=== PATIENT | female | born 1975 | race Hispanic/Latino ===

== ENCOUNTER 2017-01-20 01:09 | Inpatient (IN) | payer MEDICAID ==
[2017-01-20 01:25] VITALS: O2SAT 99; BMI 29.5
--- NOTE | 2017-01-20 01:52 | ED PDOC ---
Arrival/HPI - General Chief Complaint: Medical Clearance Time Seen by Provider: 01/20/17 01:42 Historian: Patient - History of Present Illness Narrative History of Present Illness (Text): 01/20/17 01:44 41yr old female presents as a direct admit to psych floor for depression. pt transferred from [place] for depression and attempted suicide. pt c/o depression. states she recently lost her step mom. pt with hx of depression and prior suicide attempts. no cp or sob. no abdominal pain. denies any complaints. Past Medical History - Provider Review Nursing Documentation Reviewed: Yes - Travel History Have you recently traveled outside [place] w/in the past 3 mons?: No - Cardiac Hx Cardiac Disorders: No - Pulmonary Hx Respiratory Disorders: No - Neurological Hx Neurological Disorder: No - HEENT Hx HEENT Disorder: No - Renal Hx Renal Disorder: No - Endocrine/Metabolic Hx Endocrine Disorders: No - Hematological/Oncological Hx Blood Disorders: Yes Other/Comment: Lupus. murphy. sjogren's syndrome - Integumentary Hx Dermatological Disorder: No - Musculoskeletal/Rheumatological Hx Musculoskeletal Disorders: No - Gastrointestinal Hx Gastrointestinal Disorders: No - Genitourinary/Gynecological Hx Genitourinary Disorders: No - Psychiatric Hx Psychophysiologic Disorder: Yes Hx Anxiety: Yes Hx Depression: Yes Hx Substance Use: Yes (marijuana) Family/Social History - Physician Review Nursing Documentation Reviewed: Yes Family/Social History: Unknown Family HX Smoking Status: Heavy Smoker > 10 Cigarettes Daily Hx Alcohol Use: Yes Frequency of alcohol use: Socially Hx Substance Use: Yes (marijuana) Allergies/Home Meds Allergies/Adverse Reactions: Allergies Sulfa (Sulfonamide Antibiotics) Allergy (Verified 01/20/17 01:17) RASH Review of Systems - Review of Systems Constitutional: absent: Fatigue, Fevers Respiratory: absent: SOB, Cough Cardiovascular: absent: Chest Pain, Palpitations Gastrointestinal: absent: Abdominal Pain, Nausea, Vomiting Genitourinary Female: absent: Dysuria, Frequency, Hematuria Musculoskeletal: absent: Arthralgias, Back Pain, Neck Pain Skin: absent: Rash, Pruritis Neurological: absent: Headache, Dizziness Psychiatric: Depression, Suicidal Ideation. absent: Anxiety Physical Exam Vital Signs Reviewed: Yes Vital Signs Temp Pulse Resp BP Pulse Ox 01/20/17 01:19 97.7 F 64 16 129/76 99 Temperature: Afebrile Blood Pressure: Normal Pulse: Regular Respiratory Rate: Normal Appearance: Positive for: Well-Appearing, Non-Toxic, Comfortable Pain Distress: None Mental Status: Positive for: Alert and Oriented X 3 - Systems Exam Head: Present: Atraumatic Mouth: Present: Moist Mucous Membranes Neck: Present: Normal Range of Motion Respiratory/Chest: Present: Clear to Auscultation, Good Air Exchange. No: Respiratory Distress, Accessory Muscle Use Cardiovascular: Present: Regular Rate and Rhythm, Normal S1, S2. No: Murmurs Abdomen: No: Tenderness Upper Extremity: Present: Normal ROM Lower Extremity: Present: Normal ROM Neurological: Present: GCS=15, Speech Normal Skin: Present: Warm, Dry, Normal Color. No: Rashes Psychiatric: Present: Alert Medical Decision Making ED Course and Treatment: 01/20/17 01:53 41yr old with depression. direct admit to [facility]. cbc; wnl cmp; wnl Ua; wnl cxr; wnl 2 ekgs were performed. 2nd ekg with improvement in qt sinus bradycardia at 56b /m no st elevations. uds; + cocaine and benzos impression; depression admit to behavioral health. dr. velásquez Disposition/Present on Arrival - Present on Arrival Any Indicators Present on Arrival: No History of DVT/PE: No History of Uncontrolled Diabetes: No Urinary Catheter: No History of Decub. Ulcer: No History Surgical Site Infection Following: None - Disposition Have Diagnosis and Disposition been Completed?: Yes Diagnosis: Depression Disposition: HOSPITALIZED Disposition Time: 01:55 Patient Plan: Discharge Condition: GOOD
[2017-01-20] MEDS ORDERED: Magnesium Hydroxide Susp 30 ml UD PO PRN (04:47)
[2017-01-20] MEDS ORDERED: Alum-Mag Hydrox-Simethicone Susp (30 mL) PO PRN (04:47)
[2017-01-20 07:16] VITALS: RESP 20
[2017-01-20 08:17] LABS: ADD MANUAL DIFF? NO
[2017-01-20 08:21] LABS: BASO # 0.02 K/mm3 (0.0-2.0); BASO % 0.5 % (0.0-3.0); EOS # 0.1 (0.0-0.7); GRAN # 2.57 (1.4-6.5); GRAN % 63.2 % (50.0-68.0); HEMATOCRIT 38.7 % (36.0-48.0); LYMPH # 0.9 (1.2-3.4); LYMPH % 23.2 % (22.0-35.0); MEAN CELL VOLUME 94.9 fL (80.0-105.0); MEAN CORPUSCULAR HEMOGLOBIN 32.4 pg (25.0-35.0); MEAN CORPUSCULAR HGB CONC 34.1 g/dl (31.0-37.0); MONO # 0.4 (0.1-0.6); MONO % 10.1 % (1.0-6.0); PLATELET COUNT 226 10^3/uL (120.0-450.0); RED CELL DISTRIBUTION WIDTH 12.8 % (11.5-14.5); WHITE BLOOD COUNT 4.1 10^3/ul (4.5-11.0)
[2017-01-20 08:47] LABS: FREE T4 0.87 ng/dL (0.78-2.19)
[2017-01-20] MEDS: buPROPion SR 150 MG TABLET PO SCH ×2 (08:47→16:00)
[2017-01-20 09:01] LABS: THYROID STIMULATING HORMONE 12.2 mIU/mL (0.46-4.68)
[2017-01-20] MEDS: Levothyroxine 175 MCG TAB PO SCH (09:15)
[2017-01-20 10:54] LABS: ALB/GLOB RATIO 1.4 (1.1-1.8); ALKALINE PHOSPHATASE 45 U/L (38-133); ALT/SGPT 24 U/L (7-56); AST/SGOT 24 U/L (15-39); BILIRUBIN,TOTAL 0.5 mg/dL (0.2-1.3); BLOOD UREA NITROGEN 13 mg/dL (7-21); CALCIUM 9.3 mg/dL (8.4-10.5); CARBON DIOXIDE 27 mmol/L (21-33); CHLORIDE 103 mmol/L (98-107); CHOLESTEROL 255 mg/dL (130-200); GFR AFRICAN-AMERICAN > 60; GLUCOSE,RANDOM 92 mg/dL (70-110); POTASSIUM 4.2 mmol/L (3.6-5.0); SODIUM 140 mmol/L (132-148); TOTAL PROTEIN 7.1 g/dL (5.8-8.3)
--- NOTE | 2017-01-20 13:25 | CP.PCM.CON ---
<EvelioBebeto - Last Filed: 01/20/17 14:27> History of Present Illness - History of Present Illness History of Present Illness: 41 F with pmh of Lupus, Murphy's disease, Sjogren's syndrome, and six segment disc disease, presents with drug overdose and depression with suicidal ideation. Pt states that Thursday night she took 30 pills of Xanax and unknown amount of Aleve. She states that her step mom on and that triggered her. Pt states that a few years she had attempted suicide by cutting her wrist. Today pt still c/o depression and anxiety. No other medical issues. Pt denies any headache, dizziness, f/c, sob, cp, palpitations, abd pain, urinary or bm changes. PMH: Lupus, Murphy's disease, Sjogren's syndrome, and six segment disc disease PSH: denies ALL: sulfa drugs Med: Synthroid 175mg, Wellbutrin, Xanax PRN, Plaquenil, and Citalopram SH: Lives with dad and stepmom, smokes 1/2 ppd, drinks socially, and admits to smoking marijuana and cocain use PMD: Dr Bryan Hoffman Review of Systems - Review of Systems All systems: reviewed and no additional remarkable complaints except (HPI) Past Patient History - Past Social History Smoking Status: Heavy Smoker > 10 Cigarettes Daily Alcohol: Social Drugs: Cocaine - CARDIAC Hx Cardiac Disorders: No - PULMONARY Hx Respiratory Disorders: No - NEUROLOGICAL Hx Neurological Disorder: No - HEENT Hx HEENT Problems: No - RENAL Hx Chronic Kidney Disease: No - ENDOCRINE/METABOLIC Hx Endocrine Disorders: No - HEMATOLOGICAL/ONCOLOGICAL Hx Blood Disorders: Yes Other/Comment: Lupus. murphy. sjogren's syndrome - INTEGUMENTARY Hx Dermatological Problems: No - MUSCULOSKELETAL/RHEUMATOLOGICAL Hx Musculoskeletal Disorders: No - GASTROINTESTINAL Hx Gastrointestinal Disorders: No - GENITOURINARY/GYNECOLOGICAL Hx Genitourinary Disorders: No - PSYCHIATRIC Hx Depression: Yes Hx Substance Use: Yes - SURGICAL HISTORY Hx Surgeries: No Meds Allergies/Adverse Reactions: Allergies Allergy/AdvReac Type Severity Reaction Status Date / Time Sulfa (Sulfonamide Allergy RASH Verified 01/20/17 04:52 Antibiotics) - Medications Medications: Current Medications Acetaminophen (Tylenol 325mg Tab) 650 mg PO Q6H PRN PRN Reason: Pain, Mild (1-3) Al Hydrox/Mg Hydrox/Simethicone (Maalox Plus 30 Ml) 30 ml PO DAILY PRN PRN Reason: Upset Stomach Alprazolam (Xanax) 0.25 mg PO Q6H PRN; Protocol PRN Reason: Anxiety Stop: 01/27/17 06:46 Bupropion HCl (Wellbutrin Sr 150 Mg) 150 mg PO BID [facility] Last Admin: 01/20/17 08:47 Dose: 150 mg Citalopram Hydrobromide (Celexa) 10 mg PO DAILY [facility] Last Admin: 01/20/17 08:47 Dose: 10 mg Ibuprofen (Motrin Tab) 400 mg PO Q6H PRN PRN Reason: Pain, moderate (4-7) Levothyroxine Sodium (Synthroid) 175 mcg PO ACB [facility] Last Admin: 01/20/17 09:15 Dose: 175 mcg Magnesium Hydroxide (Milk Of Magnesia) 30 ml PO DAILY PRN PRN Reason: Constipation Physical Exam - Constitutional Appears: No Acute Distress - Head Exam Head Exam: ATRAUMATIC, NORMAL INSPECTION, NORMOCEPHALIC - Eye Exam Eye Exam: EOMI, Normal appearance, PERRL - ENT Exam ENT Exam: Mucous Membranes Moist, Normal Exam - Neck Exam Neck exam: Positive for: Normal Inspection - Respiratory Exam Respiratory Exam: Clear to Auscultation Bilateral, NORMAL BREATHING PATTERN. absent: Rales, Wheezes - Cardiovascular Exam Cardiovascular Exam: REGULAR RHYTHM, RRR, +S1, +S2 - GI/Abdominal Exam GI & Abdominal Exam: Soft. absent: Distended, Tenderness - Extremities Exam Extremities exam: Negative for: calf tenderness - Neurological Exam Neurological exam: Alert, Normal Gait, Oriented x3 - Psychiatric Exam Psychiatric exam: Anxious, Depressed - Skin Skin Exam: Dry, Intact, Normal Color, Warm Results - Vital Signs Recent Vital Signs: Last Vital Signs Temp 98.3 F 01/20/17 07:15 Pulse 56 L 01/20/17 07:15 Resp 20 01/20/17 07:15 BP 89/47 L 01/20/17 07:15 Pulse Ox 99 01/20/17 01:19 - Labs Result Diagrams: 01/20/17 07:45 01/20/17 07:45 Labs: Laboratory Results - last 24 hr 01/20/17 01/20/17 01/20/17 07:45 07:45 07:45 WBC 4.1 L RBC 4.08 Hgb 13.2 Hct 38.7 MCV 94.9 MCH 32.4 MCHC 34.1 RDW 12.8 Plt Count 226 MPV 9.0 Gran % 63.2 Lymph % (Auto) 23.2 Mccreary % (Auto) 10.1 H Eos % (Auto) 3.0 Baso % (Auto) 0.5 Gran # 2.57 Lymph # 0.9 L Mccreary # 0.4 Eos # 0.1 Baso # 0.02 Sodium 140 Potassium 4.2 Chloride 103 Carbon Dioxide 27 Anion Gap 14 BUN 13 Creatinine 1.0 Est GFR ( Amer) > 60 Est GFR (Non-Af Amer) > 60 Random Glucose 92 Calcium 9.3 Total Bilirubin 0.5 AST 24 ALT 24 Alkaline Phosphatase 45 Total Protein 7.1 Albumin 4.1 Globulin 3.0 Albumin/Globulin Ratio 1.4 Triglycerides 87 Cholesterol 255 H LDL Cholesterol Direct 101 HDL Cholesterol 128 H Free T4 0.87 TSH 3rd Generation 12.20 H Assessment & Plan - Assessment and Plan (Free Text) Assessment: 41 F with pmh of Lupus, Murphy's disease, Sjogren's syndrome, and six segment disc disease, presents with drug overdose and depression with suicidal ideation. 1. Depression with suicidal ideation - Cont Wellbutrin, Xanax PRN, and Citalopram - Psychiatric medication and evaluation as per psychiatry - Cont to monitor 2. Hx of Lupus: - Cont home Plaquenil 3. Hx of Hashimotos dx: - Cont home Synthroid 175mg - TSH 12 this am - repeat TSH in 4-6 weeks as an outpatient 4. GI/DVT ppx - Regular diet and ambulating We will sign off. Please re consult us if needed. Thank you for the consult. Case and plan was seen, reviewed, and discussed in detail with Dr Wen. <Gerald Wen - Last Filed: 01/20/17 15:39> Meds - Medications Medications: Current Medications Acetaminophen (Tylenol 325mg Tab) 650 mg PO Q6H PRN PRN Reason: Pain, Mild (1-3) Al Hydrox/Mg Hydrox/Simethicone (Maalox Plus 30 Ml) 30 ml PO DAILY PRN PRN Reason: Upset Stomach Alprazolam (Xanax) 0.25 mg PO Q6H PRN; Protocol PRN Reason: Anxiety Stop: 01/27/17 06:46 Bupropion HCl (Wellbutrin Sr 150 Mg) 150 mg PO BID [facility] Last Admin: 01/20/17 08:47 Dose: 150 mg Citalopram Hydrobromide (Celexa) 10 mg PO DAILY [facility] Last Admin: 01/20/17 08:47 Dose: 10 mg Hydroxychloroquine Sulfate (Plaquenil) 200 mg PO DAILY [facility] Ibuprofen (Motrin Tab) 400 mg PO Q6H PRN PRN Reason: Pain, moderate (4-7) Levothyroxine Sodium (Synthroid) 175 mcg PO ACB [facility] Last Admin: 01/20/17 09:15 Dose: 175 mcg Magnesium Hydroxide (Milk Of Magnesia) 30 ml PO DAILY PRN PRN Reason: Constipation Results - Vital Signs Recent Vital Signs: Last Vital Signs Temp 98.3 F 01/20/17 07:15 Pulse 56 L 01/20/17 07:15 Resp 20 01/20/17 07:15 BP 89/47 L 01/20/17 07:15 Pulse Ox 99 01/20/17 01:19 - Labs Result Diagrams: 01/20/17 07:45 01/20/17 07:45 Labs: Laboratory Results - last 24 hr 01/20/17 01/20/17 01/20/17 07:45 07:45 07:45 WBC 4.1 L RBC 4.08 Hgb 13.2 Hct 38.7 MCV 94.9 MCH 32.4 MCHC 34.1 RDW 12.8 Plt Count 226 MPV 9.0 Gran % 63.2 Lymph % (Auto) 23.2 Mccreary % (Auto) 10.1 H Eos % (Auto) 3.0 Baso % (Auto) 0.5 Gran # 2.57 Lymph # 0.9 L Mccreary # 0.4 Eos # 0.1 Baso # 0.02 Sodium 140 Potassium 4.2 Chloride 103 Carbon Dioxide 27 Anion Gap 14 BUN 13 Creatinine 1.0 Est GFR ( Amer) > 60 Est GFR (Non-Af Amer) > 60 Random Glucose 92 Calcium 9.3 Total Bilirubin 0.5 AST 24 ALT 24 Alkaline Phosphatase 45 Total Protein 7.1 Albumin 4.1 Globulin 3.0 Albumin/Globulin Ratio 1.4 Triglycerides 87 Cholesterol 255 H LDL Cholesterol Direct 101 HDL Cholesterol 128 H Free T4 0.87 TSH 3rd Generation 12.20 H Attending/Attestation - Attestation I have personally seen and examined this patient.: Yes I have fully participated in the care of the patient.: Yes I have reviewed all pertinent clinical information: Yes Notes (Text): 01/20/17 15:35 Attending note; Patient seen and examined with resident in psychiatric floor. Patient is alert, awake and oriented. Denies any complaints. Patient is a 41 year old female with pmh of Lupus, Murphy's disease, Sjogren 's syndrome , depression presents with drug overdose and depression with suicidal ideation. Currently clinically stable. Lupus; continue hydroxychloroquine. Continue Motrin when necessary. Active smoking; smoking cessation is strongly advised. Patient refused NicoDerm patch. History of marijuana and cocaine abuse in the past. Drug abuse cessation is strongly advised. Murphy's; elevated TSH level. Continue Synthroid. Follow-up with endocrinology for the need to increase Synthroid. Upon discharge patient will follow-up with PMD in [facility]. Please reconsult as needed. Thank you for the courtesy of this consultation. 01/20/17 15:36 01/20/17 15:37 01/20/17 15:38
[2017-01-20 21:12] LABS: URINE BILIRUBIN NEGATIVE (NEGATIVE); URINE BLOOD NEGATIVE (NEGATIVE); URINE GLUCOSE (UA) NEGATIVE (NEGATIVE); URINE KETONE NEGATIVE (NEGATIVE); URINE LEUKOCYTE ESTERASE NEGATIVE Leu/uL (NEGATIVE); URINE PROTEIN NEGATIVE mg/dL (<30 mg/dL); URINE UROBILINOGEN 0.2 E.U./dL (<1 E.U./dL)
[2017-01-20 21:13] LABS: URINE APPEARANCE CLEAR (CLEAR); URINE COLOR YELLOW (YELLOW)
[2017-01-21 07:33] VITALS: BP 95/53; PULSE 56; TEMP 97.7
[2017-01-21] MEDS: Levothyroxine 175 MCG TAB PO SCH (09:13)
[2017-01-21] MEDS: buPROPion SR 150 MG TABLET PO SCH (09:14)
--- NOTE | 2017-01-21 17:22 | PCM.PSYCH ---
Initial Psychiatric Evaluation - Initial Psychiatric Evaluation Chief Complaint (in patient's own words): Depression with suicidal thoughts Patient's Reaction to Hospitalization: Patient feels she doesn't need to be on a psychiatric unit with such intensity of care. Feels she needs to be in the milieu where she can talk more to others. History of Present Illness and Precipitating Events: The patient is a 40-year-old single white female with a history of having cutting herself since her teens with a history of substance abuse that has included alcohol, or cocaine recently, benzodiazepines recently and marijuana. She had become intensely upset that depressed that the of her stepmother ( who was the of her mother for approximately 10 years. The patient felt close with her. Stepmother of a brain aneurysm aware surgery and could not save her life. She currently overlooked hospital. The patient and her despair and tried to seek immediate relief. In the past she has taken excessive amounts of alcohol or cut herself during times of crises; this dating back to her early teens. She has never been hospitalized before however nor has she been in any rehabilitation or a substance abuse program. The patient is a [place] of [facility]. At age 7 and her family moved to [facility]. Parents when she was 17 and she was surprised and upset by this. Several years thereafter her mother entered into a relationship with a woman further surprised her. She did like that woman. That relationship lasted for a number of years before her mother met of the present woman who is demoralized the patient has been upset about. The patient herself is heterosexual. She has had several relationships, not long -term, no marriages, one that she aborted. She is a high school graduate with some college. 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 She likes her job. She has had a number of medical problems including lupus, so grandson, Connie 's disease and disc disease. She lives with her father who is in his early 70s and is retired. His health is described as good. She has an older sister whose health is described as good. There is no familial psychiatric history. Past Psychiatric History - Past Psychiatric History Pertinent Medical Hx (Current Medical&Sleep Prob, Allergies): Allergies Allergy/AdvReac Type Severity Reaction Status Date / Time Sulfa (Sulfonamide Allergy RASH Verified 01/20/17 04:52 Antibiotics) Citalopram Hydrobromide [Celexa] 10 mg PO DAILY 01/20/17 Mobic 0.25 mg PO DAILY 01/20/17 Synthroid 0.175 mcg PO DAILY 01/20/17 Wellbutrin SR 150 MG 150 mg PO BID 01/20/17 Xanax 0.25 mg PO Q6H 01/20/17 Citalopram [celeXA] 10 mg PO DAILY tab 01/21/17 Levothyroxine [Synthroid] 175 mcg PO ACB tab 01/21/17 buPROPion SR [Wellbutrin SR 150 MG] 150 mg PO BID tab 01/21/17
--- NOTE | 2017-01-21 17:32 | PCM.PYCHDC ---
Mental Status Examination - Mental Status Examination Orientation: Place, Situation, Time Memory: Intact Mood: Neutral Affect: Broad Speech: Appropriate Attention: WNL Concentration: WNL Association: WNL Fund of Knowledge: WNL Formal Thought Process: No Impairment Description of patient's judgement and insight: Patient able to articulate her feelings, her response to recent loss, plans to return to work and to seek symptom stabilization. Psychotic Thoughts and Behaviors: None Suicidal Ideation: No Current Homicidal Ideation?: No Discharge Summary - Discharge Note Reason for Hospitalization: Patient feels she doesn't need to be on a psychiatric unit with such intensity of care. Feels she needs to be in the milieu where she can talk more to others. Psychiatric History (includes Medical, Family, Personal Hx): Patient has a history of polysubstance abuse and a history of cutting herse Laboratory Data: Abnormal Lab Results 01/20/17 01/20/17 01/20/17 07:45 20:17 21:00 Urine Color Yellow Urine Appearance Clear Urine pH 6.0 Ur Specific [place] >= 1.030 Urine Protein Negative Urine Glucose (UA) Negative Urine Ketones Negative Urine Blood Negative Urine Nitrate Negative Urine Bilirubin Negative Urine Urobilinogen 0.2 Ur Leukocyte Esterase Negative Urine Opiates Screen Negative Urine Methadone Screen Negative Ur Barbiturates Screen Negative Ur Phencyclidine Scrn Negative Ur Amphetamines Screen Negative U Benzodiazepines Scrn Positive H U Oth Cocaine Metabols Positive H U Cannabinoids Screen Positive H RPR Nonreactive Consultations:: List each consultation separately and include: 1. Reason for request. 2. Findings. 3. Follow-up Summary of Hospital Course include:: 1. Description of specific treatment plan utilized for patients during their course of treatmen. 2. Summarize the time- course for resolution of acute symptoms and/or regressed behaviors. 3. Describe issues identified and worked on during hospitalization. 4. Describe medication utilized. 5. Describe medical problems identified and treated. 6. Reassessment of suicide risk Summary of Hospital Course: The patient is a 40-year-old single white female with a history of having cutting herself since her teens with a history of substance abuse that has included alcohol, or cocaine recently, benzodiazepines recently and marijuana. She had become intensely upset that depressed that the of her stepmother ( who was the of her mother for approximately 10 years. The patient felt close with her. Stepmother of a brain aneurysm aware surgery and could not save her life. She currently overlooked hospital. The patient and her despair and tried to seek immediate relief. In the past she has taken excessive amounts of alcohol or cut herself during times of crises; this dating back to her early teens. She has never been hospitalized before however nor has she been in any rehabilitation or a substance abuse program. The patient is a [place] of [facility]. At age 7 and her family moved to [facility]. Parents when she was 17 and she was surprised and upset by this. Several years thereafter her mother entered into a relationship with a woman further surprised her. She did like that woman. That relationship lasted for a number of years before her mother met of the present woman who is demoralized the patient has been upset about. The patient herself is heterosexual. She has had several relationships, not long -term, no marriages, one that she aborted. She is a high school graduate with some college. 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 She likes her job. She has had a number of medical problems including lupus, so grandson, Connie 's disease and disc disease. She lives with her father who is in his early 70s and is retired. His health is described as good. She has an older sister whose health is described as good. There is no familial psychiatric history. - Diagnosis (1) Polysubstance abuse Status: Acute (2) Adjustment disorder with mixed anxiety and depressed mood Status: Acute - Final Diagnosis (DSM 5) Condition upon Discharge: GOOD Disposition: AGAINST MEDICAL ADVICE Follow-up Treatment Plan: [facility] and PMD - Smoking Cessation Smoking Cessation Medication prescribed: No Reason for not providing: Not interest - Antipsychotic Medications Pt discharged on 2 or more routine antipsychotic medications: No
== END 2017-01-21 13:56 | disposition left against medical advice (07) | DRG 427 ==
LOC: ED 01:09 → ERH 01:43 → PSYC 04:11
PROVIDERS: ADMIT Psychiatry & Neurology Addiction Medicine; ATTEND Psychiatry & Neurology Addiction Medicine
DX: F43.23 Adjustment disorder with mixed anxiety and depressed mood (principal); F19.10 Other psychoactive substance abuse, uncomplicated; R45.851 Suicidal ideations; F14.10 Cocaine abuse, uncomplicated; M32.9 Systemic lupus erythematosus, unspecified; M35.00 Sjogren syndrome, unspecified; E06.3 Autoimmune thyroiditis; F17.210 Nicotine dependence, cigarettes, uncomplicated; Z91.5 Personal history of self-harm